=== PATIENT | male | born 1990 | race Caucasian/White ===

== ENCOUNTER 2018-03-22 12:42 | Emergency (ER) | payer OTHER ==
[~2018-03-22] VITALS: Ht 188 cm; Wt 86.2 kg
[~2018-03-22 12:42] MED LIST: ATIVAN1 MG PO; CLEOCIN HCL300 MG PO; HYDROCODON-ACE1 EAC7 PO; HYDROCODONE-AP1 EAC6 PO; IBUPROFEN 800800 M1 PO; IBUPROFEN 800800 MG PO; NAPROSYN375 MG PO; NAPROSYN500 MG PO; NOHOMEMEDICATIONS; NORCO 5-325 TA1 EACH PO; PENICILLIN V P500 MG PO
[2018-03-22 12:45] VITALS: BP 119/73
[2018-03-22] MEDS ORDERED: LIDOCAINE VISC100 ML SWISH&SPIT (13:06)
[2018-03-22] MEDS ORDERED: TRAMADOL 50 MG50 MG PO (13:06)
[2018-03-22] MEDS ORDERED: NAPROSYN500 MG PO (13:06)
[2018-03-22] MEDS ORDERED: AMOXICILLIN 50500 MG PO (13:06)
== END 2018-03-22 13:16 | disposition home or self-care (01) ==
LOC: M.ERS 12:42
DX: K04.7 Periapical abscess without sinus (principal); F41.9 Anxiety disorder, unspecified; F32.9 Major depressive disorder, single episode, unspecified; F17.210 Nicotine dependence, cigarettes, uncomplicated

== ENCOUNTER 2018-05-08 18:50 | Emergency (ER) | payer OTHER ==
[~2018-05-08] VITALS: Ht 188 cm; Wt 81.7 kg
[~2018-05-08 18:50] MED LIST changes: +AMOXICILLIN 50500 MG PO; +LIDOCAINE VISC100 ML SWISH&SPIT; +TRAMADOL 50 MG50 MG PO
[2018-05-08 18:57] VITALS: BP 139/82
[2018-05-08] MEDS ORDERED: KEFLEX500 M1 PO (19:17)
== END 2018-05-08 19:20 | disposition home or self-care (01) ==
LOC: M.ERS 18:50
DX: L01.00 Impetigo, unspecified (principal); F32.9 Major depressive disorder, single episode, unspecified; F41.9 Anxiety disorder, unspecified; F17.210 Nicotine dependence, cigarettes, uncomplicated

== ENCOUNTER 2018-11-14 13:42 | Emergency (ER) | payer OTHER ==
[~2018-11-14] VITALS: Ht 188 cm; Wt 79.4 kg
[~2018-11-14 13:42] MED LIST changes: +KEFLEX500 M1 PO
[2018-11-14] MEDS ORDERED: NORCO 5-325 TA1 EACH PO ×2 (15:11→15:23)
[2018-11-14] MEDS ORDERED: IBUPROFEN 600600 M1 PO (15:23)
[2018-11-14 16:15] VITALS: BP 144/86
== END 2018-11-14 16:15 | disposition home or self-care (01) ==
LOC: M.ERS 13:42
DX: G89.18 Other acute postprocedural pain (principal); M79.632 Pain in left forearm; F32.9 Major depressive disorder, single episode, unspecified; F41.9 Anxiety disorder, unspecified; F17.210 Nicotine dependence, cigarettes, uncomplicated

== ENCOUNTER 2019-07-07 14:13 | Emergency (ER) | payer OTHER ==
[~2019-07-07] VITALS: Ht 188 cm; Wt 81.7 kg
[~2019-07-07 14:13] MED LIST changes: +IBUPROFEN 600600 M1 PO
[2019-07-07] MEDS ORDERED: TRAMADOL 50 MG50 MG PO (15:27)
[2019-07-07 15:44] VITALS: BP 112/64
== END 2019-07-07 15:36 | disposition home or self-care (01) ==
LOC: M.ERS 14:13
DX: M25.532 Pain in left wrist (principal); F41.9 Anxiety disorder, unspecified; F32.9 Major depressive disorder, single episode, unspecified; F17.210 Nicotine dependence, cigarettes, uncomplicated